=== PATIENT | female | born 1965 ===

== ENCOUNTER 2017-06-08 11:43 | Emergency (ER) | payer MEDICAID ==
[2017-06-08 11:50] VITALS: BMI 38.4
[2017-06-08 11:56] VITALS: TEMP 98.5; O2SAT 97
--- NOTE | 2017-06-08 12:15 | ED PDOC ---
Arrival/HPI - General Chief Complaint: Medical Clearance Time Seen by Provider: 06/08/17 11:56 Historian: Patient - History of Present Illness Narrative History of Present Illness (Text): 06/08/17 12:09 Kelly Swanson is a 51 year old female who presents to the emergency department complaining of swelling to right sided of the face since today morning. Patient reports that she wears a BiPAP for sleep apnea and thinks she may have leaned against the pillow which caused the swelling. States that PMD advised her to emergency department for further evaluation. Denies fever, chills , headache, dizziness, numbness to face, or any other complaints at this time. Time/Duration: Other (today morning ) Symptom Onset: Gradual Symptom Course: Improving Severity Level: Mild Past Medical History - Provider Review Nursing Documentation Reviewed: Yes - Tetanus Immunization Tetanus Immunization: Unknown - Past Medical History Past Medical History: No Previous - Cardiac Hx Hypertension: Yes - Pulmonary Hx Respiratory Disorders: Yes Hx Asthma: Yes - Neurological Hx Neurological Disorder: Yes Hx Dizziness: Yes - HEENT Hx HEENT Disorder: Yes (wears glasses) - Renal Hx Renal Disorder: No - Endocrine/Metabolic Hx Endocrine Disorders: No - Hematological/Oncological Hx Blood Disorders: Yes Hx Anemia: Yes - Integumentary Hx Dermatological Disorder: No - Musculoskeletal/Rheumatological Hx Falls: No - Gastrointestinal Hx Gastrointestinal Disorders: No - Genitourinary/Gynecological Hx Genitourinary Disorders: No - Psychiatric Hx Psychophysiologic Disorder: No Hx Substance Use: No - Past Surgical History Past Surgical History: No Previous - Surgical History Hx Tubal Ligation: Yes - Anesthesia Hx Anesthesia: Yes Hx Anesthesia Reactions: No Hx Malignant Hyperthermia: No - Suicidal Assessment Feels Threatened In Home Enviroment: No Family/Social History - Physician Review Nursing Documentation Reviewed: Yes Family/Social History: No Known Family HX Smoking Status: Never Smoked Hx Alcohol Use: No Hx Substance Use: No Hx Substance Use Treatment: No Allergies/Home Meds Allergies/Adverse Reactions: Allergies aspirin Allergy (Verified 06/08/17 11:50) REDNESS Home Medications: Home Meds Medication Instructions Recorded Confirmed Furosemide [Lasix] 40 mg PO DAILY 03/05/17 06/08/17 Linaclotide [Linzess] 290 mcg PO DAILY 03/05/17 06/08/17 Lisinopril [Zestril] 40 mg PO DAILY 03/05/17 06/08/17 Montelukast [Singulair] 10 mg PO DAILY 03/05/17 06/08/17 Potassium Chloride [K-Dur 20] 20 meq PO DAILY 03/05/17 06/08/17 amLODIPine [Norvasc] 10 mg PO DAILY 03/05/17 06/08/17 metFORMIN [glucOPHAGE] 850 mg PO DAILY 03/05/17 06/08/17 Review of Systems - Physician Review All systems were reviewed & negative as marked: Yes - Review of Systems Constitutional: Normal. absent: Fatigue, Fevers ENT: Other (swelling to r.face ) Respiratory: Normal. absent: SOB, Cough, Sputum Cardiovascular: Normal. absent: Chest Pain, Palpitations Gastrointestinal: Normal Genitourinary Female: Normal Neurological: Normal. absent: Headache, Dizziness Psychiatric: Normal Physical Exam Vital Signs Reviewed: Yes Vital Signs Temp Pulse Resp BP Pulse Ox 06/08/17 12:30 89 18 124/79 97 06/08/17 11:55 98.5 F 92 H 17 126/81 97 Temperature: Afebrile Blood Pressure: Normal Pulse: Regular Respiratory Rate: Normal Appearance: Positive for: Well-Appearing, Non-Toxic, Comfortable Pain Distress: None Mental Status: Positive for: Alert and Oriented X 3 - Systems Exam Head: Present: Atraumatic, Normocephalic, Other (No erythema, No warmth, No tenderness, No evidence of infection ) Pupils: Present: PERRL Conjunctiva: Present: Normal Mouth: Present: Moist Mucous Membranes Pharnyx: Present: Normal. No: ERYTHEMA, EXUDATE, TONSILS ENLARGED Neck: Present: Normal Range of Motion. No: MIDLINE TENDERNESS, Paraspinal Tenderness Respiratory/Chest: Present: Clear to Auscultation, Good Air Exchange. No: Respiratory Distress, Accessory Muscle Use Cardiovascular: Present: Regular Rate and Rhythm, Normal S1, S2. No: Murmurs Abdomen: Present: Normal Bowel Sounds. No: Tenderness, Distention, Peritoneal Signs Upper Extremity: Present: Normal Inspection. No: Cyanosis, Edema Lower Extremity: Present: Normal Inspection. No: Edema Neurological: Present: GCS=15, CN II-XII Intact, Speech Normal, Motor Func Grossly Intact, Normal Sensory Function Skin: Present: Warm, Dry, Normal Color. No: Rashes Psychiatric: Present: Alert, Oriented x 3, Normal Insight, Normal Concentration Medical Decision Making ED Course and Treatment: 06/08/17 12:17 Impression:A 51 year old female who presents to the emergency department complaining of swelling to right side of face. Progress Notes: 06/08/17 12:17 Patient denies any pain or numbness to the right face. Patient is stable for discharge. Advised to f/u with PMD within few days and present to emergency department for new or worsening symptoms. - Scribe Statement The provider has reviewed the documentation as recorded by the Sigifredo Balbuena Provider Attestation: Provider Scribe Attestation: All medical record entries made by the Scribe were at my direction and personally dictated by me. I have reviewed the chart and agree that the record accurately reflects my personal performance of the history, physical exam, medical decision making, and the department course for this patient. I have also personally directed, reviewed, and agree with the discharge instructions and disposition. Disposition/Present on Arrival - Present on Arrival Any Indicators Present on Arrival: No History of DVT/PE: No History of Uncontrolled Diabetes: No Urinary Catheter: No History of Decub. Ulcer: No History Surgical Site Infection Following: None - Disposition Have Diagnosis and Disposition been Completed?: Yes Diagnosis: Right facial swelling Disposition: HOME/ ROUTINE Disposition Time: 12:00 Condition: GOOD Additional Instructions: Thank you for letting us take care of you today. Your provider was Dr. Hernandez. The emergency medical care you received today was directed at your acute symptoms. If you were prescribed any medication, please fill it and take as directed. It may take several days for your symptoms to resolve. Return to the Emergency Department if your symptoms worsen, do not improve, or if you have any other problems. Please contact your doctor or call one of the physicians/clinics you have been referred to that are listed on the Patient Visit Information form that is included in your discharge packet. Bring any paperwork you were given at discharge with you along with any medications you are taking to your follow up visit. Our treatment cannot replace ongoing medical care by a primary care provider (PCP) outside of the emergency department. Thank you for allowing the [facility] team to be part of your care today. Follow up with your primary doctor in 2-3 days for re-evaluation and further management. Referrals: [facility], [Non-Staff] - Follow up with primary
[2017-06-08 12:37] VITALS: BP 124/79; PULSE 89; RESP 18
== END 2017-06-08 12:55 | disposition home or self-care (01) ==
LOC: ED 11:43
DX: R22.0 Localized swelling, mass and lump, head (principal)

== ENCOUNTER 2018-02-23 16:55 | Observation (INO) | payer MEDICAID ==
[2018-02-23 17:08] VITALS: BMI 38.5
--- NOTE | 2018-02-23 17:43 | ED PDOC ---
Arrival/HPI - General Chief Complaint: Chest Pain Time Seen by Provider: 02/23/18 16:57 Historian: Patient - History of Present Illness Narrative History of Present Illness (Text): 02/23/18 17:43 This 52 yo female with a pmh diabetes, hypertension, GERD, hiatal hernia, hyperlipidemia, presents to this Emergency department complaining of intermittent chest pain since last night. Patient describes chest pain as substernal, non radiating, and burning. Pain worsen with deep inspiration. Patient denies other somatic complains. Denies fever, zabala, abdominal pain, urinary symptoms, dizziness, trauma, recent travel or abnormal gait. Patient noted having an injection for her plantar fasciitis x 2 days ago. Time/Duration: Other (see hpi) Context: Home Past Medical History - Provider Review Nursing Documentation Reviewed: Yes - Tetanus Immunization Tetanus Immunization: Unknown - Past Medical History Past Medical History: No Previous - Cardiac Hx Hypertension: Yes - Pulmonary Hx Respiratory Disorders: Yes Hx Asthma: Yes - Neurological Hx Neurological Disorder: Yes Hx Dizziness: Yes - HEENT Hx HEENT Disorder: Yes (wears glasses) - Renal Hx Renal Disorder: No - Endocrine/Metabolic Hx Endocrine Disorders: No - Hematological/Oncological Hx Blood Disorders: Yes Hx Anemia: Yes - Integumentary Hx Dermatological Disorder: No - Musculoskeletal/Rheumatological Hx Falls: No - Gastrointestinal Hx Gastrointestinal Disorders: No - Genitourinary/Gynecological Hx Genitourinary Disorders: No - Psychiatric Hx Psychophysiologic Disorder: No Hx Substance Use: No - Past Surgical History Past Surgical History: No Previous - Surgical History Hx Tubal Ligation: Yes - Anesthesia Hx Anesthesia: Yes Hx Anesthesia Reactions: No Hx Malignant Hyperthermia: No - Suicidal Assessment Feels Threatened In Home Enviroment: No Family/Social History - Physician Review Nursing Documentation Reviewed: Yes Family/Social History: Other (noncontributory) Smoking Status: Never Smoked Hx Alcohol Use: No Hx Substance Use: No Hx Substance Use Treatment: No Allergies/Home Meds Allergies/Adverse Reactions: Allergies aspirin Allergy (Verified 06/08/17 11:50) REDNESS Home Medications: Home Meds Medication Instructions Recorded Confirmed Furosemide [Lasix] 40 mg PO DAILY 03/05/17 06/08/17 Linaclotide [Linzess] 290 mcg PO DAILY 03/05/17 06/08/17 Lisinopril [Zestril] 40 mg PO DAILY 03/05/17 06/08/17 Montelukast [Singulair] 10 mg PO DAILY 03/05/17 06/08/17 Potassium Chloride [K-Dur 20] 20 meq PO DAILY 03/05/17 06/08/17 amLODIPine [Norvasc] 10 mg PO DAILY 03/05/17 06/08/17 metFORMIN [glucOPHAGE] 850 mg PO DAILY 03/05/17 06/08/17 Review of Systems - Review of Systems Constitutional: Normal. absent: Fatigue, Weight Change, Fevers Eyes: Normal ENT: Normal. absent: Sore Throat Respiratory: Normal. absent: SOB, Cough, Sputum, Wheezing Cardiovascular: Chest Pain. absent: Palpitations, Edema, Calf Pain, ZABALA, Orthopnea, Syncope Gastrointestinal: Normal. absent: Abdominal Pain, Nausea, Vomiting Genitourinary Female: Normal. absent: Dysuria, Frequency, Hematuria Musculoskeletal: Normal Skin: Normal. absent: Rash Neurological: Normal. absent: Headache, Dizziness, Focal Weakness, Gait Changes Endocrine: Normal Hemo/Lymphatic: Normal Psychiatric: Normal Physical Exam Vital Signs Temp Pulse Resp BP Pulse Ox 02/23/18 19:10 65 16 120/69 99 02/23/18 17:11 98.4 F 79 18 123/72 97 Temperature: Afebrile Blood Pressure: Normal Pulse: Regular Respiratory Rate: Normal Appearance: Positive for: Well-Appearing, Non-Toxic, Comfortable Pain Distress: None Mental Status: Positive for: Alert and Oriented X 3 - Systems Exam Head: Present: Atraumatic, Normocephalic Pupils: Present: PERRL Extroacular Muscles: Present: EOMI Conjunctiva: Present: Normal Mouth: Present: Moist Mucous Membranes Neck: Present: Normal Range of Motion Respiratory/Chest: Present: Clear to Auscultation, Good Air Exchange. No: Respiratory Distress, Accessory Muscle Use, Wheezes, Rhonchi, Tender to Palpation Cardiovascular: Present: Regular Rate and Rhythm, Normal S1, S2. No: Murmurs Abdomen: No: Tenderness, Distention, Peritoneal Signs, Rebound, Guarding Back: Present: Normal Inspection Upper Extremity: Present: Normal Inspection, Normal ROM. No: Cyanosis, Edema Lower Extremity: Present: Normal Inspection, Normal ROM. No: Edema Neurological: Present: GCS=15, CN II-XII Intact, Speech Normal Skin: Present: Warm, Dry, Normal Color. No: Rashes Psychiatric: Present: Alert, Oriented x 3, Normal Insight, Normal Concentration , Normal Affect. No: Anxious, Agitated, Suicidal Ideation, Homicidal Ideation Medical Decision Making ED Course and Treatment: 02/23/18 20:[address] Pena , [place] [facility] regarding patient complaining of chest pain. We reviewed labs, cxr, patient pmh. He stated Dr. Woods is house doctor [place]. 02/23/18 20:[address] Woods regarding patient complaining of chest pain. We reviewed labs, Chest X-ray, and pmh. He agrees with plan for observation. Re-evaluation Time: 20:16 Reassessment Condition: Re-examined, Improving,but remains with symptoms - Lab Interpretations Lab Results: 02/23/18 18:15 02/23/18 18:15 Lab Results 02/23/18 19:30: Urine Opiates Screen Pending, Urine Methadone Screen Pending, Ur Barbiturates Screen Negative, Ur Phencyclidine Scrn Pending, Ur Amphetamines Screen Pending, U Benzodiazepines Scrn Pending, U Oth Cocaine Metabols Pending, U Cannabinoids Screen Pending 02/23/18 19:30: Urine Color Yellow, Urine Appearance Clear, Urine pH 6.0, Ur Specific [place] 1.010, Urine Protein Negative, Urine Glucose (UA) Negative, Urine Ketones Negative, Urine Blood Negative, Urine Nitrate Negative, Urine Bilirubin Negative, Urine Urobilinogen 0.2, Ur Leukocyte Esterase Trace H, Urine RBC Negative, Urine WBC 0 - 2 02/23/18 18:15: Sodium 141, Potassium 4.0, Chloride 103, Carbon Dioxide 27, Anion Gap 15, BUN 22 H, Creatinine 1.0, Est GFR ( Amer) > 60, Est GFR ( Non-Af Amer) 58, Random Glucose 117 H, Calcium 10.1, Magnesium 2.3 H, Total Bilirubin 0.2, AST 27, ALT 37, Alkaline Phosphatase 133 H, Lactate Dehydrogenase 380, Total Creatine Kinase 117, Troponin I < 0.01, NT-Pro-B Natriuret Pep 38.1, Total Protein 7.8, Albumin 4.1, Globulin 3.6, Albumin/ Globulin Ratio 1.2, Lipase 157 02/23/18 18:15: PT 11.5, INR 1.01, APTT 33.8 02/23/18 18:15: WBC 13.3 H, RBC 4.51, Hgb 11.9 L, Hct 36.9, MCV 81.8, MCH 26.4, MCHC 32.2, RDW 15.9 H, Plt Count 418, MPV 10.8, Gran % 56.3, Lymph % (Auto) 35.2 H, [place] % (Auto) 7.5 H, Eos % (Auto) 0.8 L, Baso % (Auto) 0.2, Gran # 7.44 H, Lymph # (Auto) 4.7 H, [place] # (Auto) 1.0 H, Eos # (Auto) 0.1, Baso # (Auto) 0.03 I have reviewed the lab results: Yes Interpretation: No sign. chg./baseline - RAD Interpretation Narrative RAD Interpretations (Text): 02/23/18 20:16 Chest x-rays: NAD Radiology Orders: 02/23/18 17:44 CHEST PORTABLE [RAD] Stat - EKG Interpretation Interpreted by ED Physician: Yes (NSR @ [address] changes) Type: 12 lead EKG Comparison: No previous EKG avail. - Medication Orders Current Medication Orders: Discontinued Medications Al Hydrox/Mg Hydrox/Simethicone (Maalox Plus 30 Ml) 30 ml PO STAT STA Stop: 02/23/18 17:46 Last Admin: 02/23/18 17:54 Dose: 30 ml Belladonna/Phenobarbital ( Elixir) 5 ml PO STAT STA Stop: 02/23/18 17:46 Last Admin: 02/23/18 17:52 Dose: 5 ml Famotidine (Pepcid 20mg/50ml Premix) 20 mg in 50 mls @ 100 mls/hr IVPB STAT STA Stop: 02/23/18 18:13 Last Admin: 02/23/18 17:52 Dose: 100 mls/hr eMAR Start Stop Document 02/23/18 17:52 RR (Rec: 02/23/18 17:52 RR [id number]) Intravenous Solution Start Date 02/23/18 Start Time 17:52 End Date 02/23/18 End time 18:22 Total Infusion Time 30 Sodium Chloride (Sodium Chloride 0.9%) 1,000 mls @ 999 mls/hr IV .Q1H1M STA Stop: 02/23/18 18:46 Last Admin: 02/23/18 17:54 Dose: 999 mls/hr eMAR Start Stop Document 02/23/18 17:54 RR (Rec: 02/23/18 17:54 RR [id number]) Intravenous Solution Start Date 02/23/18 Start Time 17:54 End Date 02/23/18 End time 18:55 Total Infusion Time 61 Lidocaine (Lidocaine 2% Viscous) 5 ml PO STAT STA Stop: 02/23/18 17:46 Last Admin: 02/23/18 17:53 Dose: 5 ml Disposition/Present on Arrival - Present on Arrival Any Indicators Present on Arrival: No History of DVT/PE: No History of Uncontrolled Diabetes: No Urinary Catheter: No History of Decub. Ulcer: No History Surgical Site Infection Following: None - Disposition Have Diagnosis and Disposition been Completed?: Yes Diagnosis: Chest pain Disposition: HOSPITALIZED Disposition Time: 20:02 Patient Plan: Admission Patient Problems: Current Active Problems Problem Status Onset Chest pain Acute Condition: STABLE Discharge Instructions (ExitCare): Chest Pain (ED) Referrals: Yasmany Campuzano MD [Primary Care Provider] - Follow up with primary Forms: rankur (Greenlandic)
[2018-02-23] MEDS ORDERED: Famotidine 20mg/50ml 20 MG/50 ML BAG IVPB STA (17:44)
[2018-02-23] MEDS ORDERED: Atrop/Hyosc/Scopal/PB Elixir (120 ml) PO STA (17:45)
[2018-02-23] MEDS ORDERED: Lidocaine 2% Viscous 100 ml PO STA (17:45)
[2018-02-23] MEDS ORDERED: Alum-Mag Hydrox-Simethicone Susp (30 mL) PO STA (17:45)
[2018-02-23] MEDS ORDERED: Sodium Chloride 0.9% 1,000 ML IV STA (17:46)
[2018-02-23 18:31] LABS: BASO # 0.03 K/mm3 (0.0-2.0); BASO % 0.2 % (0.0-3.0); EOS # 0.1 (0.0-0.7); EOS % 0.8 % (1.5-5.0); GRAN # 7.44 (1.4-6.5); GRAN % 56.3 % (50.0-68.0); HEMOGLOBIN 11.9 g/dL (12.0-16.0); LYMPH # 4.7 (1.2-3.4); LYMPH % 35.2 % (22.0-35.0); MEAN CELL VOLUME 81.8 fl (80.0-105.0); MEAN CORPUSCULAR HEMOGLOBIN 26.4 pg (25.0-35.0); MEAN CORPUSCULAR HGB CONC 32.2 g/dl (31.0-37.0); MEAN PLATELET VOLUME 10.8 fl (7.0-11.0); MONO % 7.5 % (1.0-6.0); RBC 4.51 10^6/uL (3.5-6.1); RED CELL DISTRIBUTION WIDTH 15.9 % (11.5-14.5); WHITE BLOOD COUNT 13.3 10^3/ul (4.5-11.0)
[2018-02-23 18:49] LABS: INR 1.01 (0.93-1.08); PARTIAL THROMBOPLASTIN TIME 33.8 Seconds (25.1-36.5); PROTHROMBIN TIME 11.5 SECONDS (9.4-12.5)
[2018-02-23 19:05] LABS: ALB/GLOB RATIO 1.2 (1.1-1.8); ALBUMIN 4.1 g/dL (3.0-4.8); ALT/SGPT 37 U/L (7-56); AST/SGOT 27 U/L (14-36); BLOOD UREA NITROGEN 22 mg/dL (7-21); CALCIUM 10.1 mg/dL (8.4-10.5); GFR AFRICAN-AMERICAN > 60; GFR NON-AFRICAN AMERICAN 58; LIPASE 157 U/L (23-300)
[2018-02-23 19:16] LABS: B-TYPE NATRIURETIC PEPTIDE 38.1 pg/mL (0-450); TROPONIN I < 0.01 ng/mL
[2018-02-23 19:50] LABS: URINE BILIRUBIN NEGATIVE (NEGATIVE); URINE BLOOD NEGATIVE (NEGATIVE); URINE GLUCOSE (UA) NEGATIVE (NEGATIVE); URINE LEUKOCYTE ESTERASE TRACE Leu/uL (NEGATIVE); URINE PROTEIN NEGATIVE mg/dL (<30 mg/dL); URINE UROBILINOGEN 0.2 E.U./dL (<1 E.U./dL)
[2018-02-23 19:52] LABS: URINE APPEARANCE CLEAR (CLEAR); URINE COLOR YELLOW (YELLOW)
[2018-02-23 20:03] LABS: BARBITURATES, UR NEGATIVE (NEGATIVE)
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
[2018-02-23 20:13] LABS: URINE RBC NEGATIVE /hpf (0-2); URINE WBC 0 - 2 /hpf (0-6)
[2018-02-23 20:34] LABS: BENZODIAZEPINES, UR NEGATIVE (NEGATIVE); OPIATES, UR NEGATIVE (NEGATIVE); PHENCYCLIDINE, UR NEGATIVE (NEGATIVE)
[2018-02-23] MEDS: Insulin Lispro (humaLOG) MEDIUM Coverage SC SCH (22:31)
[2018-02-24 06:51] LABS: BASO # 0.04 K/mm3 (0.0-2.0); BASO % 0.4 % (0.0-3.0); EOS # 0.2 (0.0-0.7); EOS % 1.6 % (1.5-5.0); GRAN # 4.31 (1.4-6.5); GRAN % 45.8 % (50.0-68.0); HEMOGLOBIN 10.9 g/dL (12.0-16.0); LYMPH % 42.2 % (22.0-35.0); MEAN CELL VOLUME 81.9 fl (80.0-105.0); MEAN CORPUSCULAR HEMOGLOBIN 25.6 pg (25.0-35.0); MEAN CORPUSCULAR HGB CONC 31.2 g/dl (31.0-37.0); MEAN PLATELET VOLUME 10.4 fl (7.0-11.0); MONO # 0.9 (0.1-0.6); RBC 4.26 10^6/uL (3.5-6.1); RED CELL DISTRIBUTION WIDTH 15.9 % (11.5-14.5); WHITE BLOOD COUNT 9.4 10^3/ul (4.5-11.0)
[2018-02-24 07:09] LABS: LDL CHOLESTEROL 80 mg/dL (0-129)
[2018-02-24 07:10] LABS: TROPONIN I < 0.01 ng/mL
[2018-02-24 07:32] VITALS: BP 110/64; RESP 19; TEMP 97.7; O2SAT 94
[2018-02-24 07:36] LABS: ALB/GLOB RATIO 1.2 (1.1-1.8); ALBUMIN 3.7 g/dL (3.0-4.8); ALT/SGPT 30 U/L (7-56); AST/SGOT 39 U/L (14-36); BLOOD UREA NITROGEN 17 mg/dL (7-21); CALCIUM 9.6 mg/dL (8.4-10.5); GFR AFRICAN-AMERICAN > 60; GFR NON-AFRICAN AMERICAN > 60; HDL CHOLESTEROL 45 mg/dL (29-60)
[2018-02-24] MEDS: Insulin Lispro (humaLOG) MEDIUM Coverage SC SCH ×2 (07:54→12:10)
--- NOTE | 2018-02-24 08:48 | RAD ---
HISTORY: CP COMPARISON: No prior. FINDINGS: LUNGS: No active pulmonary disease. PLEURA: No significant pleural effusion identified, no pneumothorax apparent. CARDIOVASCULAR: Normal. OSSEOUS STRUCTURES: No significant abnormalities. VISUALIZED UPPER ABDOMEN: Normal. OTHER FINDINGS: None. IMPRESSION: No active disease.
[2018-02-24] MEDS ORDERED: Potassium Chloride 20 mEq ER Tab PO SCH (10:00)
[2018-02-24] MEDS ORDERED: Non Formulary Medication (Linaclotide [Linzess] 290 MCG) PO SCH (10:00)
[2018-02-24 13:16] VITALS: PULSE 80
--- NOTE | 2018-02-24 14:17 | CARD ---
APPROVED REPORT EKG Measurement Heart [id number] <Conclusion> Normal sinus rhythm Normal ECG
--- NOTE | 2018-02-24 14:22 | CARD ---
APPROVED REPORT EKG Measurement Heart [id number] <Conclusion> Normal sinus rhythm Normal ECG
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
== END 2018-02-24 13:59 | disposition home or self-care (01) ==
LOC: ED 16:55 → ERH 20:09 → 3RSO 21:00
PROVIDERS: ADMIT Internal Medicine; ATTEND Internal Medicine
DX: R07.89 Other chest pain (principal); K21.9 Gastro-esophageal reflux disease without esophagitis; M72.2 Plantar fascial fibromatosis; J45.909 Unspecified asthma, uncomplicated; I10 Essential (primary) hypertension; I08.1 Rheumatic disorders of both mitral and tricuspid valves; J98.4 Other disorders of lung; G47.33 Obstructive sleep apnea (adult) (pediatric); E78.5 Hyperlipidemia, unspecified; E11.9 Type 2 diabetes mellitus without complications; K44.9 Diaphragmatic hernia without obstruction or gangrene; Z79.84 Long term (current) use of oral hypoglycemic drugs; Z88.6 Allergy status to analgesic agent
CPT/HCPCS: 36415; 71045; 80053; 80061; 80324; 80345; 80346; 80349; 80353; 80358; 80361; 81001; 82550; 82948; 83036; 83615; 83690; 83735; 83880; 83992; 84443; 84484; 85025; 85610; 85730; 87086; 93005; 94660; 96360; 96365; 99285; G0378; J7040

== ENCOUNTER 2018-08-12 11:11 | Day surgery (SDC) | payer MEDICAID ==
[2018-08-12 11:58] VITALS: O2SAT 100
[2018-08-12] MEDS ORDERED: Propofol 10 mg/ml Inj (20 ML) ONE (12:26)
[2018-08-12] MEDS ORDERED: Sodium Chloride 0.9% 1,000 ML IV SCH (13:00)
[2018-08-12 14:10] VITALS: BP 115/68; PULSE 65; RESP 17; TEMP 97.9
== END 2018-08-12 14:45 | disposition home or self-care (01) ==
LOC: ENDO 11:11
PROVIDERS: ATTEND Internal Medicine Gastroenterology
DX: Z12.11 Encounter for screening for malignant neoplasm of colon (principal); K64.8 Other hemorrhoids
CPT/HCPCS: 45380; 84703; 88305; J2001; J2704; J7030; J7040

== ENCOUNTER 2018-08-20 16:41 | Observation (INO) | payer MEDICAID ==
[2018-08-20 17:37] VITALS: BMI 40.7
--- NOTE | 2018-08-20 17:44 | ED PDOC ---
Arrival/HPI <Elpidio Steiner - Last Filed: 08/20/18 17:55> - General Historian: Patient - History of Present Illness Narrative History of Present Illness (Text): 08/20/18 17:37 53 y/o female, pmh incuding htn/dm/asthma/gerd, not allergic to aspirin, post menopausal and bilateral tubal ligations, c/o chest pain started early last night last night. Pt. stated that she was sitting in the college class last night on the chair, developed anterior chest pain, on and off from last night to today, no palpitation, no headache, no shortness of breath, no night sweat, no change in vision, no numbness or tingling, no other medical or psychological complaints. <Francisco Hannon - Last Filed: 08/20/18 20:16> - General Time Seen by Provider: 08/20/18 17:35 Past Medical History - Provider Review Nursing Documentation Reviewed: Yes - Tetanus Immunization Tetanus Immunization: Unknown - Past Medical History Past Medical History: No Previous - Cardiac Hx Pacemaker: No - Pulmonary Hx Bronchitis: No Hx Chronic Obstructive Pulmonary Disease (COPD): No Hx Emphysema: No Hx Pneumonia: No Hx Respiratory Aspiration: No Hx Respiratory Tract Infection: No Hx Sleep Apnea: Yes (cpap at night) Hx Tuberculosis: No - Neurological Hx Paralysis: No - HEENT Hx Blind: No Hx Cataracts: No Hx Deafness: No Hx Difficulty Chewing: Yes (partial dentures upper and lower) Hx Epistaxis: No Hx Glaucoma: No Hx Macular Degeneration: No - Renal Hx Dialysis: No Hx Kidney Stones: No Hx Neurogenic Bladder: No Hx Pyelonephritis: No Hx Renal Cancer: No Hx Renal Failure: No - Endocrine/Metabolic Hx Adrenal Cancer: No Hx Diabetes Insipidus: No Hx Diabetes Mellitus Type 1: No Hx Diabetes Mellitus Type 2: Yes Hx Hyperthyroidism: No Hx Hypothyroidism: No Hx Systemic Lupus Erythematosus: No - Hematological/Oncological Hx Blood Transfusions: No - Integumentary Hx Basal Cell Carcinoma: No Hx Eczema: No Hx Melanoma: No Hx Psoriasis: No Hx Squamous Cell Carcinoma: No - Musculoskeletal/Rheumatological Hx Musculoskeletal Disorders: Yes - Gastrointestinal Hx Colostomy: No Hx Crohn's Disease: No Hx Diverticulitis: No Hx Gall Bladder Disease: No Hx Gastroesophageal Reflux: No Hx Gastrointestinal Ulcer: No Hx Ileostomy: No Hx Liver Failure: No Hx Pancreatitis: No HX Swallowing Problems: No - Genitourinary/Gynecological Hx Hematuria: No Hx Incontinence: No Hx Prostate Problems: No Hx Sexually Transmitted Diseases: No Hx Urinary Tract Infection: No - Psychiatric Hx Emotional Abuse: No Hx Physical Abuse: No Hx Substance Use: No - Past Surgical History Past Surgical History: No Previous - Surgical History Hx Amputation: No Hx Appendectomy: No Hx Cardiac Catheterization: No Hx Cholecystectomy: No Hx Coronary Stent: No Hx Gastric Bypass Surgery: No Hx Hysterectomy: No Hx Inguinal Hernia Repair: No Hx Joint Replacement: No Hx Kidney Transplant: No Hx Liver Transplant: No Hx Mastectomy: No Hx Musculoskeletal Surgery: Yes (b/l planter faciitis surgical repair) Hx Open Heart Surgery: No Hx Orthopedic Surgery: No Hx Splenectomy: No Hx Valve Replacement: No - Anesthesia Hx Anesthesia Reactions: Yes (BECAME HYPERTENSIVE POST LAST SURGERY) Hx Malignant Hyperthermia: No - Suicidal Assessment Feels Threatened In Home Enviroment: No <Francisco Hannon - Last Filed: 08/20/18 20:16> Family/Social History - Physician Review Nursing Documentation Reviewed: Yes Family/Social History: Unknown Family HX Smoking Status: Never Smoked Hx Alcohol Use: No Hx Substance Use: No Hx Substance Use Treatment: No <Francisco Hannon - Last Filed: 08/20/18 20:16> Allergies/Home Meds <Elpidio Steiner - Last Filed: 08/20/18 17:55> <Francisco Hannon - Last Filed: 08/20/18 20:16> Allergies/Adverse Reactions: Allergies No Known Allergies Allergy (Verified 08/20/18 19:58) Home Medications: Home Meds Medication Instructions Recorded Confirmed Furosemide [Lasix] 40 mg PO DAILY 03/05/17 08/12/18 Linaclotide [Linzess] 290 mcg PO DAILY PRN 03/05/17 08/12/18 Lisinopril [Zestril] 40 mg PO DAILY 03/05/17 08/12/18 Montelukast [Singulair] 10 mg PO DAILY 03/05/17 08/12/18 Potassium Chloride [K-Dur 20 mEq 20 meq PO DAILY 03/05/17 08/12/18 ER Tab] amLODIPine [Norvasc] 10 mg PO DAILY 03/05/17 08/12/18 metFORMIN [glucOPHAGE] 850 mg PO DAILY 03/05/17 08/12/18 Albuterol HFA [Ventolin HFA 90 1 puff IH PRN PRN 08/12/18 08/12/18 mcg/actuation (8 g)] Cholecalciferol (Vitamin D3) 50,000 unit PO .QWED 08/12/18 08/12/18 [Vitamin D3] hydrALAZINE [hydralazine 25 mg PO BID 08/12/18 08/12/18 Hydrochloride] Review of Systems - Review of Systems Constitutional: absent: Fatigue, Fevers Eyes: absent: Vision Changes ENT: absent: Hearing Changes Respiratory: absent: SOB, Cough Cardiovascular: Chest Pain Gastrointestinal: absent: Abdominal Pain, Nausea, Vomiting Genitourinary Female: absent: Dysuria, Frequency Musculoskeletal: absent: Arthralgias, Back Pain Skin: absent: Rash, Pruritis Neurological: absent: Headache, Dizziness Psychiatric: absent: Anxiety, Depression, Suicidal Ideation <Francisco Hannon - Last Filed: 08/20/18 20:16> Physical Exam Vital Signs Temp Pulse Pulse Resp BP BP Pulse Ox 08/20/18 17:40 96 H 121/66 08/20/18 17:37 97.8 F 96 H 18 121 98 <Kwabena Steineroper - Last Filed: 08/20/18 17:55> Vital Signs Reviewed: Yes Temperature: Afebrile Blood Pressure: Normal Pulse: Regular Respiratory Rate: Normal Appearance: Positive for: Well-Appearing, Non-Toxic, Comfortable Pain Distress: Mild Mental Status: Positive for: Alert and Oriented X 3 - Systems Exam Head: Present: Atraumatic, Normocephalic Pupils: Present: PERRL Extroacular Muscles: Present: EOMI Conjunctiva: Present: Normal Mouth: Present: Moist Mucous Membranes Neck: Present: Normal Range of Motion Respiratory/Chest: Present: Clear to Auscultation, Good Air Exchange. No: Respiratory Distress, Accessory Muscle Use Cardiovascular: Present: Regular Rate and Rhythm, Normal S1, S2. No: Murmurs Abdomen: No: Tenderness, Distention, Peritoneal Signs Back: Present: Normal Inspection Upper Extremity: Present: Normal Inspection. No: Cyanosis, Edema Lower Extremity: Present: Normal Inspection. No: Edema Neurological: Present: GCS=15, CN II-XII Intact, Speech Normal, Motor Func Grossly Intact, Gait Normal, Memory Normal Skin: Present: Warm, Dry, Normal Color. No: Rashes Psychiatric: Present: Alert, Oriented x 3, Normal Insight, Normal Concentration <Francisco Hannon - Last Filed: 08/20/18 20:16> Medical Decision Making - RAD Interpretation Radiology Orders: 08/20/18 17:45 CHEST PORTABLE [RAD] Stat - Medication Orders Current Medication Orders: Discontinued Medications Famotidine (Pepcid) 20 mg IVP STAT STA Stop: 08/20/18 17:45 <Elpidio Steiner - Last Filed: 08/20/18 17:55> ED Course and Treatment: 08/20/18 17:46 -labs -ekg -cxr -IV pepcid -Observe and reassess 08/20/18 19:25 -UA show +UTI, IV rocephine ordered 08/20/18 19:59 -EKG: NSR @ 91 BPM, no ST elevation or depression, no T wave inversion -CXR show no active disease -Labs show no acute findings except wbc 14.4 (afebrile, UA and fluid ordered which I will repeat the CBC). -Trop is negative at this time, she would need 24 hours -Pt. still has pain of midsternal chest pain from score 8 to 6/10, morphine/nitro/aspirin ordered, she needs further evaluation for observation overnight as her heart score is 4. -Paging night hospitalist for admission. 08/20/18 20:15 -I spoke to the medical parasitologist and Dr. Deng, discussed about the labs/radiology result and course of treatment, agreed on the admission over night due to the persistent chest pain and leukocytosis. - Lab Interpretations I have reviewed the lab results: Yes - EKG Interpretation EKG Interpretation (Text): 08/20/18 17:49 NSR @ 91 BPM, no ST elevation or depression, no T wave inversion Interpreted by ED Physician: Yes Type: 12 lead EKG <Francisco aHnnon - Last Filed: 08/20/18 20:16> - PA / SENIOR INFORMATION SECURITY ARCHITECT / Resident Statement TRACI has reviewed & agrees with the documentation as recorded. <Elpidio Steiner - Last Filed: 08/20/18 17:55> - PA / SENIOR INFORMATION SECURITY ARCHITECT / Resident Statement TRACI has reviewed & agrees with the documentation as recorded. <Francisco Hannon - Last Filed: 08/20/18 20:16> Disposition/Present on Arrival <Elpidio Steiner - Last Filed: 08/20/18 17:55> - Present on Arrival Any Indicators Present on Arrival: No History of DVT/PE: No History of Uncontrolled Diabetes: No Urinary Catheter: No History of Decub. Ulcer: No History Surgical Site Infection Following: None - Disposition Have Diagnosis and Disposition been Completed?: Yes Disposition Time: 20:01 Patient Plan: Admission, Observation, Telemetry <Francisco Hannon - Last Filed: 08/20/18 20:16> - Disposition Diagnosis: UTI (urinary tract infection), Chest pain Disposition: HOSPITALIZED Patient Problems: Current Active Problems Problem Status Onset Chest pain Acute UTI (urinary tract infection) Acute Condition: STABLE Discharge Instructions (ExitCare): Chest Pain (ED)
[2018-08-20 18:35] LABS: BASO # 0.04 K/mm3 (0.0-2.0); BASO % 0.3 % (0.0-3.0); EOS # 0.4 (0.0-0.7); EOS % 2.6 % (1.5-5.0); GRAN # 8.29 (1.4-6.5); GRAN % 57.7 % (50.0-68.0); HEMOGLOBIN 11.3 g/dL (12.0-16.0); LYMPH # 4.6 (1.2-3.4); LYMPH % 32.2 % (22.0-35.0); MEAN CORPUSCULAR HEMOGLOBIN 25.3 pg (25.0-35.0); MEAN CORPUSCULAR HGB CONC 31.2 g/dl (31.0-37.0); MONO % 7.2 % (1.0-6.0); RBC 4.47 10^6/uL (3.5-6.1); RED CELL DISTRIBUTION WIDTH 15.2 % (11.5-14.5); WHITE BLOOD COUNT 14.4 10^3/ul (4.5-11.0)
[2018-08-20 18:40] LABS: ALB/GLOB RATIO 1.3 (1.1-1.8); ALBUMIN 4.6 g/dL (3.0-4.8); ALT/SGPT 24 U/L (7-56); AST/SGOT 28 U/L (14-36); BLOOD UREA NITROGEN 15 mg/dL (7-21); CALCIUM 9.6 mg/dL (8.4-10.5); GFR NON-AFRICAN AMERICAN > 60; LIPASE 139 U/L (23-300)
[2018-08-20 18:51] LABS: TROPONIN I < 0.01 ng/mL
[2018-08-20] MEDS ORDERED: Sodium Chloride 0.9% 1,000 ML IV STA (18:52)
[2018-08-20 19:20] LABS: PH,URINE 6.5 (4.7-8.0); URINE BILIRUBIN NEGATIVE (NEGATIVE); URINE BLOOD NEGATIVE (NEGATIVE); URINE GLUCOSE (UA) NEGATIVE (NEGATIVE); URINE LEUKOCYTE ESTERASE SMALL Leu/uL (NEGATIVE); URINE PROTEIN NEGATIVE mg/dL (<30 mg/dL); URINE UROBILINOGEN 0.2 E.U./dL (<1 E.U./dL)
[2018-08-20 19:21] LABS: URINE COLOR COLORLESS (YELLOW)
[2018-08-20 19:22] LABS: URINE APPEARANCE CLEAR (CLEAR)
[2018-08-20] MEDS ORDERED: cefTRIAXone 1 gm 1 GM/100 ML BAG IVPB STA (19:24)
[2018-08-20 19:50] LABS: URINE RBC NEGATIVE /hpf (0-2)
[2018-08-20] MEDS ORDERED: Morphine 4 mg/ml ISec IVP STA (19:57)
--- NOTE | 2018-08-20 21:06 | CARD ---
APPROVED REPORT Date of service: 08/20/2018 EKG Measurement Heart [id number] <Conclusion> Normal sinus rhythm Normal ECG
[2018-08-20] MEDS ORDERED: Morphine 2 mg/ml ISec IVP PRN (21:26)
[2018-08-20] MEDS ORDERED: Albuterol-Ipratrop 3 mg / 0.5 (3 ml) UD IH PRN (21:29)
[2018-08-20] MEDS ORDERED: Bismuth Subsalicylate 262 mg/15 ml Sus (240 ml) PO PRN (21:45)
--- NOTE | 2018-08-20 22:01 | CP.PCM.HP ---
<LanceDinorahCristhian Vargas - Last Filed: 08/21/18 00:58> History of Present Illness - History of Present Illness History of Present Illness: Cristhian Lucas PGY1 History and Physical for Dr Deng Pt is a 53yo female with a PMH of NIDDM, HTN, ?GERD, ?hiatial hernia, plantar fascitis, asthma, BERYL who presents to the ED complaining of 8/10 burning substernal chest pain, which radiates to her back. The pain started at 7pm last night, she states the pain worsened from while she was at work walking up and down stairs. Pt reports having difficulty breathing during this event, in addition to feeling tired. Pt states that her pain is now 2/10. Pt states this has happened before about 6 months ago, she came to [facility] time, she was told she had GERD. Pt took an Ibuprofen which helped the pain. Pt denies having the pain radiate to her jaw, arms or neck. Pt denies paroxysmal nocturnal dyspnea, waking up with a cough/ scratchy throat. Pt denies suprapubic tenderness, or any urinary symptoms. PMH: NIDDM, HTN, ?GERD, ?hiatial hernia, plantar fascitis, asthma, BERYL PSH: tubal ligation (2000), polyp removal from vocal cord (2017), Colonoscopy (2018) FH: Mother 83, HTN, anemia. Father 60, from [place]: denies tobacco, denies alcohol, denies drugs, lives with and 2 children Home meds: per pt: lisinopril 40, amlodipine 10, lasix 40, Vit D, Metformin 850, Hydralazine BID Allergies: ASA, causes GI upset PMD: Dr Yasmany Campuzano, [place] Present on Admission - Present on Admission Any Indicators Present on Admission: No Review of Systems - Review of Systems Review of Systems: a 12 point ROS was obtained and added to the HPI Past Patient History - Tetanus Immunizations Tetanus Immunization: Unknown - Past Medical History & Family History Past Medical History?: Yes - Past Social History Smoking Status: Never Smoked - CARDIAC Hx Pacemaker: No - PULMONARY Hx Bronchitis: No Hx Chronic Obstructive Pulmonary Disease (COPD): No Hx Emphysema: No Hx Pneumonia: No Hx Respiratory Aspiration: No Hx Respiratory Tract Infection: No Hx Sleep Apnea: Yes (cpap at night) Hx Tuberculosis: No - NEUROLOGICAL Hx Paralysis: No - HEENT Hx Blind: No Hx Cataracts: No Hx Deafness: No Hx Difficulty Chewing: Yes (partial dentures upper and lower) Hx Epistaxis: No Hx Glaucoma: No Hx Macular Degeneration: No - RENAL Hx Dialysis: No Hx Kidney Stones: No Hx Neurogenic Bladder: No Hx Pyelonephritis: No Hx Renal (Kidney) Cancer: No Hx Renal Failure: No - ENDOCRINE/METABOLIC Hx Adrenal Cancer: No Hx Diabetes Insipidus: No Hx Diabetes Mellitus Type 1: No Hx Diabetes Mellitus Type 2: Yes Hx Hyperthyroidism: No Hx Hypothyroidism: No Hx Systemic Lupus Erythematosus: No - HEMATOLOGICAL/ONCOLOGICAL Hx Blood Transfusions: No - INTEGUMENTARY Hx Basil Cell: No Hx Eczema: No Hx Melanoma: No Hx Psoriasis: No Hx Squamous Cell: No - MUSCULOSKELETAL/RHEUMATOLOGICAL Hx Musculoskeletal Disorders: Yes - GASTROINTESTINAL Hx Colostomy: No Hx Crohn's Disease: No Hx Diverticulitis: No Hx Gall Bladder Disease: No Hx Gastroesophageal Reflux: No Hx Ileostomy: No Hx Liver Failure: No Hx Pancreatitis: No HX Swallowing Problems: No - GENITOURINARY/GYNECOLOGICAL Hx Hematuria: No Hx Incontinence: No Hx Sexually Transmitted Disorders: No Hx Urinary Tract Infection: No - PSYCHIATRIC Hx Emotional Abuse: No Hx Physical Abuse: No Hx Substance Use: No - SURGICAL HISTORY Hx Amputation: No Hx Appendectomy: No Hx Cardiac Catheterization: No Hx Cholecystectomy: No Hx Coronary Stent: No Hx Gastric Bypass Surgery: No Hx Hysterectomy: No Hx Joint Replacement: No Hx Kidney Transplant: No Hx Liver Transplant: No Hx Mastectomy: No Hx Musculoskeletal Surgery: Yes (b/l planter faciitis surgical repair) Hx Open Heart Surgery: No Hx Orthopedic Surgery: No Hx Splenectomy: No Hx Valve Replacement: No - ANESTHESIA Hx Anesthesia Reactions: Yes (BECAME HYPERTENSIVE POST LAST SURGERY) Hx Malignant Hyperthermia: No Meds Allergies/Adverse Reactions: Allergies Allergy/AdvReac Type Severity Reaction Status Date / Time No Known Allergies Allergy Verified 08/20/18 19:58 Physical Exam - Constitutional Appears: No Acute Distress - Head Exam Head Exam: ATRAUMATIC, NORMOCEPHALIC - Eye Exam Eye Exam: EOMI - ENT Exam ENT Exam: Mucous Membranes Moist - Respiratory Exam Respiratory Exam: Clear to Auscultation Bilateral, NORMAL BREATHING PATTERN. absent: Accessory Muscle Use, Respiratory Distress - Cardiovascular Exam Cardiovascular Exam: RRR, +S1, +S2 - GI/Abdominal Exam GI & Abdominal Exam: Normal Bowel Sounds, Soft - Neurological Exam Neurological exam: CN II-XII Intact, Oriented x3 - Psychiatric Exam Psychiatric exam: Normal Affect, Normal Mood - Skin Skin Exam: Dry, Normal Color, Warm Results - Vital Signs Recent Vital Signs: Last Vital Signs Temp 97.8 F 08/20/18 17:37 Pulse 96 H 08/20/18 17:40 Resp 18 08/20/18 17:37 BP 121/66 08/20/18 17:40 Pulse Ox 98 08/20/18 17:37 - Labs Result Diagrams: 08/20/18 18:27 08/20/18 18:27 Labs: Laboratory Results - last 24 hr 08/20/18 08/20/18 08/20/18 18:27 18:27 18:30 WBC 14.4 H D RBC 4.47 Hgb 11.3 L Hct 36.2 MCV 81.0 MCH 25.3 MCHC 31.2 RDW 15.2 H Plt Count 451 H MPV 10.0 Gran % 57.7 Lymph % (Auto) 32.2 [place] % (Auto) 7.2 H Eos % (Auto) 2.6 Baso % (Auto) 0.3 Gran # 8.29 H Lymph # (Auto) 4.6 H [place] # (Auto) 1.0 H Eos # (Auto) 0.4 Baso # (Auto) 0.04 Sodium 142 Potassium 4.6 Chloride 104 Carbon Dioxide 29 Anion Gap 14 BUN 15 Creatinine 0.8 Est GFR ( Amer) > 60 Est GFR (Non-Af Amer) > 60 Random Glucose 97 Calcium 9.6 Magnesium 2.5 H Total Bilirubin 0.4 AST 28 ALT 24 Alkaline Phosphatase 122 Lactate Dehydrogenase 391 Total Creatine Kinase 100 Troponin I < 0.01 Total Protein 8.2 Albumin 4.6 Globulin 3.6 Albumin/Globulin Ratio 1.3 Lipase 139 Urine Color Colorless Urine Appearance Clear Urine pH 6.5 Ur Specific [place] <= 1.005 Urine Protein Negative Urine Glucose (UA) Negative Urine Ketones Negative Urine Blood Negative Urine Nitrate Negative Urine Bilirubin Negative Urine Urobilinogen 0.2 Ur Leukocyte Esterase Small H Urine RBC Negative Urine WBC 1 - 3 Ur Epithelial Cells None Urine Bacteria None Assessment & Plan - Assessment and Plan (Free Text) Assessment: Pt is a 53yo female with a PMH of NIDDM, HTN, ?GERD, ?hiatial hernia, plantar fascitis, asthma, BERYL who presents to the ED complaining of 8/10 burning chest pain, which radiates to her back. Plan: Chest pain, likely atypical Chest pain secondary to GI, Pulm, or MSK origin, rule out ACS - trop negative x1, continue to trend Q6 - EKG shows no signs of ST elevation, depression or T wave inversion, repeat in morning - follow up lipid panel - Pepto bismol PRN - flexeril 5mg TID - pepcid 20mg - morphine 2mg q4 PRN - nitro SL 0.3 PRN - ECHO: February 2017, EF 69%, mild mitral regurg, mild tricuspid regurg, mild pulm HTN - Myocardial Stress Test: February 2017, essentially normal SPECT myocardial perfusion study. Normal gated wall motion of the left ventricle. - Cardio consulted, Dr Montgomery Suspected Asymtomatic Bacteruria - s/p one dose of rocephin in ED - continue to monitor off antibiotics - WBC 14.4 - positive for LE - follow up urine culture Anemia, asymptomatic Hgb at baseline, stable normocytic normochromic anemia - Hgb 11.3 - follow up iron panel - follow up B12 and folate - FOBT - cannot order peripheral smear, pt is observation status History of HTN - continue amlodipine 5mg - lasix 20mg - hydralazine 25 BID - lisinopril 40mg History of NIDDM - accuchecks - ISS - follow up A1C - hold metformin at this time, in case pt needs procedure with contrast Histry of Asthma - duonebs PRN Dispo: most likely will discharge home 18 Pt seen, examined, assessment and plan discussed with Dr Ish Lucas PGY1 - Date & Time Date: 08/20/18 Time: 22:17 <Junior Deng - Last Filed: 08/21/18 02:10> Results - Vital Signs Recent Vital Signs: Last Vital Signs Temp 98.8 F 08/21/18 00:01 Pulse 83 08/21/18 02:00 Resp 20 08/21/18 00:01 BP 119/70 08/21/18 00:01 Pulse Ox 95 08/21/18 00:01 - Labs Result Diagrams: 08/20/18 18:27 08/20/18 18:27 Labs: Laboratory Results - last 24 hr 08/20/18 08/20/18 08/20/18 18:27 18:27 18:30 WBC 14.4 H D RBC 4.47 Hgb 11.3 L Hct 36.2 MCV 81.0 MCH 25.3 MCHC 31.2 RDW 15.2 H Plt Count 451 H MPV 10.0 Gran % 57.7 Lymph % (Auto) 32.2 [place] % (Auto) 7.2 H Eos % (Auto) 2.6 Baso % (Auto) 0.3 Gran # 8.29 H Lymph # (Auto) 4.6 H [place] # (Auto) 1.0 H Eos # (Auto) 0.4 Baso # (Auto) 0.04 Sodium 142 Potassium 4.6 Chloride 104 Carbon Dioxide 29 Anion Gap 14 BUN 15 Creatinine 0.8 Est GFR ( Amer) > 60 Est GFR (Non-Af Amer) > 60 Random Glucose 97 Calcium 9.6 Magnesium 2.5 H Total Bilirubin 0.4 AST 28 ALT 24 Alkaline Phosphatase 122 Lactate Dehydrogenase 391 Total Creatine Kinase 100 Troponin I < 0.01 Total Protein 8.2 Albumin 4.6 Globulin 3.6 Albumin/Globulin Ratio 1.3 Lipase 139 Urine Color Colorless Urine Appearance Clear Urine pH 6.5 Ur Specific [place] <= 1.005 Urine Protein Negative Urine Glucose (UA) Negative Urine Ketones Negative Urine Blood Negative Urine Nitrate Negative Urine Bilirubin Negative Urine Urobilinogen 0.2 Ur Leukocyte Esterase Small H Urine RBC Negative Urine WBC 1 - 3 Ur Epithelial Cells None Urine Bacteria None 08/21/18 00:15 WBC RBC Hgb Hct MCV MCH MCHC RDW Plt Count MPV Gran % Lymph % (Auto) [place] % (Auto) Eos % (Auto) Baso % (Auto) Gran # Lymph # (Auto) [place] # (Auto) Eos # (Auto) Baso # (Auto) Sodium Potassium Chloride Carbon Dioxide Anion Gap BUN Creatinine Est GFR ( Amer) Est GFR (Non-Af Amer) Random Glucose Calcium Magnesium Total Bilirubin AST ALT Alkaline Phosphatase Lactate Dehydrogenase Total Creatine Kinase Troponin I < 0.01 Total Protein Albumin Globulin Albumin/Globulin Ratio Lipase Urine Color Urine Appearance Urine pH Ur Specific [place] Urine Protein Urine Glucose (UA) Urine Ketones Urine Blood Urine Nitrate Urine Bilirubin Urine Urobilinogen Ur Leukocyte Esterase Urine RBC Urine WBC Ur Epithelial Cells Urine Bacteria Attending/Attestation - Attestation I have personally seen and examined this patient.: Yes I have fully participated in the care of the patient.: Yes I have reviewed all pertinent clinical information: Yes
[2018-08-21] MEDS ORDERED: Pantoprazole 40 mg EC Tab PO SCH (06:00)
[2018-08-21 06:34] VITALS: O2SAT 97
[2018-08-21 07:22] LABS: BASO # 0.05 K/mm3 (0.0-2.0); BASO % 0.5 % (0.0-3.0); EOS # 0.4 (0.0-0.7); EOS % 3.5 % (1.5-5.0); GRAN # 5.21 (1.4-6.5); HEMOGLOBIN 10.5 g/dL (12.0-16.0); LYMPH # 3.9 (1.2-3.4); MEAN CELL VOLUME 80.7 fl (80.0-105.0); MONO # 0.9 (0.1-0.6); RBC 4.2 10^6/uL (3.5-6.1); RED CELL DISTRIBUTION WIDTH 15.2 % (11.5-14.5); WHITE BLOOD COUNT 10.4 10^3/ul (4.5-11.0)
[2018-08-21 07:28] LABS: IRON 36 ug/dL (45-180)
[2018-08-21 07:29] LABS: ALB/GLOB RATIO 1.2 (1.1-1.8); ALBUMIN 3.9 g/dL (3.0-4.8); ALT/SGPT 25 U/L (7-56); AST/SGOT 27 U/L (14-36); BLOOD UREA NITROGEN 12 mg/dL (7-21); GFR NON-AFRICAN AMERICAN > 60; HDL CHOLESTEROL 43 mg/dL (29-60)
[2018-08-21 07:37] LABS: % IRON SATURATION 13 % (20-55); TOTAL IRON BINDING CAPACITY 286 ug/dL (265-497)
[2018-08-21 07:39] LABS: TROPONIN I < 0.01 ng/mL
[2018-08-21 07:40] LABS: LDL CHOLESTEROL 88 mg/dL (0-129)
--- NOTE | 2018-08-21 08:43 | CP.PCM.DIS ---
<Priscilla Beckham - Last Filed: 08/21/18 14:59> Provider - Provider Date of Admission: 08/20/18 20:10 Attending physician: Cristopher Dasilva MD Primary care physician: Dr. Campuazno Consults: cardiology Time Spent in preparation of Discharge (in minutes): 45 Diagnosis - Discharge Diagnosis (1) Chest pain Status: Resolved Priority: High (2) GERD (gastroesophageal reflux disease) Status: Chronic Priority: Medium Hospital Course - Lab Results Lab Results: Most Recent Lab Values WBC 10.4 10^3/ul (4.5-11.0) D 08/21/18 06:30 RBC 4.20 10^6/uL (3.5-6.1) 08/21/18 06:30 Hgb 10.5 g/dL (12.0-16.0) L 08/21/18 06:30 Hct 33.9 % (36.0-48.0) L 08/21/18 06:30 MCV 80.7 fl (80.0-105.0) 08/21/18 06:30 MCH 25.0 pg (25.0-35.0) 08/21/18 06:30 MCHC 31.0 g/dl (31.0-37.0) 08/21/18 06:30 RDW 15.2 % (11.5-14.5) H 08/21/18 06:30 Plt Count 404 10^3/uL (120.0-450.0) 08/21/18 06:30 MPV 10.0 fl (7.0-11.0) 08/21/18 06:30 Gran % 50.0 % (50.0-68.0) 08/21/18 06:30 Lymph % (Auto) 37.0 % (22.0-35.0) H 08/21/18 06:30 [place] % (Auto) 9.0 % (1.0-6.0) H 08/21/18 06:30 Eos % (Auto) 3.5 % (1.5-5.0) 08/21/18 06:30 Baso % (Auto) 0.5 % (0.0-3.0) 08/21/18 06:30 Gran # 5.21 (1.4-6.5) 08/21/18 06:30 Lymph # (Auto) 3.9 (1.2-3.4) H 08/21/18 06:30 [place] # (Auto) 0.9 (0.1-0.6) H 08/21/18 06:30 Eos # (Auto) 0.4 (0.0-0.7) 08/21/18 06:30 Baso # (Auto) 0.05 K/mm3 (0.0-2.0) 08/21/18 06:30 Sodium 140 mmol/L (132-148) 08/21/18 06:30 Potassium 4.1 mmol/L (3.6-5.0) 08/21/18 06:30 Chloride 106 mmol/L (98-107) 08/21/18 06:30 Carbon Dioxide 29 mmol/L (21-33) 08/21/18 06:30 Anion Gap 10 (10-20) 08/21/18 06:30 BUN 12 mg/dL (7-21) 08/21/18 06:30 Creatinine 0.7 mg/dl (0.7-1.2) 08/21/18 06:30 Est GFR ( Amer) > 60 08/21/18 06:30 Est GFR (Non-Af Amer) > 60 08/21/18 06:30 Random Glucose 101 mg/dL (70-110) 08/21/18 06:30 Calcium 9.0 mg/dL (8.4-10.5) 08/21/18 06:30 Phosphorus 3.9 mg/dL (2.5-4.5) 08/21/18 06:30 Magnesium 2.4 mg/dL (1.7-2.2) H 08/21/18 06:30 Iron 36 ug/dL (45-180) L 08/21/18 06:30 TIBC 286 ug/dL (265-497) 08/21/18 06:30 % Saturation 13 % (20-55) L 08/21/18 06:30 Total Bilirubin 0.6 mg/dL (0.2-1.3) 08/21/18 06:30 AST 27 U/L (14-36) 08/21/18 06:30 ALT 25 U/L (7-56) 08/21/18 06:30 Alkaline Phosphatase 108 U/L (38-126) 08/21/18 06:30 Lactate Dehydrogenase 391 U/L (333-699) 08/20/18 18: Total Creatine Kinase 100 U/L (35-230) 08/20/18 Troponin I < 0.01 ng/mL 08/21/18:30 Total Protein 7.1 g/dL (5.8-8.3) 08/21/18: Albumin 3.9 g/dL (3.0-4.8) 08/21/18: Globulin 3.2 gm/dL 08/21/18 Albumin/Globulin Ratio 1.2 (1.1-1.8) 08/21/18: Triglycerides 57 mg/dL (35-160) 08/21/18 Cholesterol 160 mg/dL (130-200) 08/21/18: LDL Cholesterol Direct 88 mg/dL (0-129) 08/21/18: HDL Cholesterol 43 mg/dL (29-60) 08/21/18: Lipase 139 U/L (23-300) 08/20/18 18 Urine Color Colorless (YELLOW) 08/20/18 18: Urine Appearance Clear (CLEAR) 08/20/18: Urine pH 6.5 (4.7-8.0) 08/20/18: Ur Specific [place] <= 1.005 (1.005-1.035) 08/20/18: Urine Protein Negative mg/dL (<30 mg/dL) 08/20/18: Urine Glucose (UA) Negative mg/dL (NEGATIVE) 08/20/18 18: Urine Ketones Negative mg/dL (NEGATIVE) 08/20/18 18: Urine Blood Negative (NEGATIVE) 08/20/18 18: Urine Nitrate Negative (NEGATIVE) 08/20/18: Urine Bilirubin Negative (NEGATIVE) 08/20/18 Urine Urobilinogen 0.2 E.U./dL (<1 E.U./dL) 08/20/18 18: Ur Leukocyte Esterase Small Matthias/uL (NEGATIVE) H 08/20/18 18: Urine RBC Negative /hpf (0-2) 08/20/18 18: Urine WBC 1 - 3 /hpf (0-6) 08/20/18 18:30 Ur Epithelial Cells None /hpf (0-5) 08/20/18 18:30 Urine Bacteria None (NEG) 08/20/18 18:30 - Hospital Course Hospital Course: Patient is a 53 yo female with a PMH of NIDDM, HTN, ?GERD, ?hiatial hernia, plantar fascitis, asthma, BERYL who presents to the ED complaining of 8/10 burning substernal chest pain, which radiates to her back. The pain started at 7pm last night, she states the pain worsened from while she was at work walking up and down stairs. Patient reports having difficulty breathing during this event, in addition to feeling tired. Patient states that her pain is now 2/10. She states this has happened before about 6 months ago, [place] [facility] [place], she was told she had GERD. She took an Ibuprofen which helped the pain. She denies having the pain radiate to her jaw, arms or neck. Pt denies paroxysmal nocturnal dyspnea, waking up with a cough/ scratchy throat.Patient was diagnosed with non- cardiac chest pain most likely due to GERD. However, an acute chest pain work up was completed. EKG showed normal sinus rhythm, troponins were negative x3 (<0.01) and chest x-ray was unremarkable. Her lipid panel results were within normal limits (Trig 57, Chol 160, LDL 88, HDL 43). Previous echo completed in February 2017 was normal. Troponins were negative. EKG did not show any acute changes. Cardiology was consulted and advised to start Protonix. Patient was also diagnosed anemia. Hemoglobin was 11.3 (L), iron was 36 (L), TIBC was 286 (normal), ferritin was 28.7 (normal), Vitamin B12 was 207 (L) and folate was 9.7 (normal). She will follow this up as an outpatient. On discharge, chest pain had resolved. Patient was breathing room air and ambulating without assistance. She will get a stress test next week as an outpatient. Discharge Exam - Head Exam Head Exam: ATRAUMATIC, NORMOCEPHALIC - Eye Exam Eye Exam: EOMI, Normal appearance Pupil Exam: PERRL - ENT Exam ENT Exam: Mucous Membranes Moist, Normal Exam - Neck Exam Neck exam: Full Rom, Normal Inspection - Respiratory Exam Respiratory Exam: Clear to PA & Lateral, NORMAL BREATHING PATTERN, UNREMARKABLE - Cardiovascular Exam Cardiovascular Exam: REGULAR RHYTHM, +S1, +S2 - GI/Abdominal Exam GI & Abdominal Exam: Normal Bowel Sounds, Soft, Unremarkable - Rectal Exam Rectal Exam: Deferred - Extremities Exam Extremities exam: normal capillary refill, normal inspection, pedal pulses present - Back Exam Back exam: NORMAL INSPECTION - Neurological Exam Neurological exam: Alert, CN II-XII Intact, Normal Gait, Oriented x3 - Psychiatric Exam Psychiatric exam: Normal Affect, Normal Mood - Skin Skin Exam: Dry, Intact, Normal Color, Warm Discharge Plan - Discharge Medications Prescriptions: Pantoprazole [Protonix EC Tab] 40 mg PO DAILY #30 ect - Follow Up Plan Condition: IMPROVED Disposition: HOME/ ROUTINE Patient education suggested?: Yes Instructions: Acid Reflux (Gastroesophageal Reflux Disease), Adult (DC), Urinary Tract Infection, Adult (DC), Chest Pain (DC) Additional Instructions: Please follow up with your primary care doctor, Dr. Campuzano, within 3-5 days of discharge. He can provide you with referrals to specialists. Please follow-up with a mill tender as an outpatient. Please follow-up with a accounting lecturer as an outpatient. You are scheduled for a stress test as an outpatient on 09/02. Please take all medications as prescribed. You are being given a prescription for Protonix (pantoprazole) for acid reflux. If your symptoms return, please present to the nearest emergency room. Nursing See care notes provided for further instructions. Referrals: Dev Montgomery MD [Staff Provider] - <Cristopher Dasilva - Last Filed: 08/23/18 07:56> Provider - Provider Date of Admission: 08/20/18 20:10 Attending physician: Cristopher Dasilva MD Hospital Course - Lab Results Lab Results: Micro Results 08/20/18 23:10 Urine,Clean Catch Urine Culture - Final 10-50,000 CFU/ML. MULTIPLE SPECIES. PROBABLE CONTAMINATION. Most Recent Lab Values WBC 10.4 10^3/ul (4.5-11.0) D 08/21/18 06:30 RBC 4.20 10^6/uL (3.5-6.1) 08/21/18 06:30 Hgb 10.5 g/dL (12.0-16.0) L 08/21/18 06:30 Hct 33.9 % (36.0-48.0) L 08/21/18 06:30 MCV 80.7 fl (80.0-105.0) 08/21/18 06:30 MCH 25.0 pg (25.0-35.0) 08/21/18 06:30 MCHC 31.0 g/dl (31.0-37.0) 08/21/18 06:30 RDW 15.2 % (11.5-14.5) H 08/21/18 06:30 Plt Count 404 10^3/uL (120.0-450.0) 08/21/18 06:30 MPV 10.0 fl (7.0-11.0) 08/21/18 06:30 Gran % 50.0 % (50.0-68.0) 08/21/18 06:30 Lymph % (Auto) 37.0 % (22.0-35.0) H 08/21/18 06:30 [place] % (Auto) 9.0 % (1.0-6.0) H 08/21/18 06:30 Eos % (Auto) 3.5 % (1.5-5.0) 08/21/18 06:30 Baso % (Auto) 0.5 % (0.0-3.0) 08/21/18 06:30 Gran # 5.21 (1.4-6.5) 08/21/18 06:30 Lymph # (Auto) 3.9 (1.2-3.4) H 08/21/18 06:30 [place] # (Auto) 0.9 (0.1-0.6) H 08/21/18 06:30 Eos # (Auto) 0.4 (0.0-0.7) 08/21/18 06:30 Baso # (Auto) 0.05 K/mm3 (0.0-2.0) 08/21/18 06:30 Sodium 140 mmol/L (132-148) 08/21/18 06:30 Potassium 4.1 mmol/L (3.6-5.0) 08/21/18 06:30 Chloride 106 mmol/L (98-107) 08/21/18 06:30 Carbon Dioxide 29 mmol/L (21-33) 08/21/18 06:30 Anion Gap 10 (10-20) 08/21/18 06:30 BUN 12 mg/dL (7-21) 08/21/18 06:30 Creatinine 0.7 mg/dl (0.7-1.2) 08/21/18 06:30 Est GFR ( Amer) > 60 08/21/18 06:30 Est GFR (Non-Af Amer) > 60 08/21/18 06:30 POC Glucose (mg/dL) 87 mg/dL (65-110) 08/21/18 16:24 Random Glucose 101 mg/dL (70-110) 08/21/18 06:30 Hemoglobin A1c 6.1 % (4.2-6.5) 08/21/18 06:30 Calcium 9.0 mg/dL (8.4-10.5) 08/21/18 06:30 Phosphorus 3.9 mg/dL (2.5-4.5) 08/21/18 06:30 Magnesium 2.4 mg/dL (1.7-2.2) H 08/21/18 06:30 Iron 36 ug/dL (45-180) L 08/21/18 06:30 TIBC 286 ug/dL (265-497) 08/21/18 06:30 % Saturation 13 % (20-55) L 08/21/18 06:30 Ferritin 28.7 ng/mL 08/21/18 06:30 Total Bilirubin 0.6 mg/dL (0.2-1.3) 08/21/18 06:30 AST 27 U/L (14-36) 08/21/18 06:30 ALT 25 U/L (7-56) 08/21/18 06:30 Alkaline Phosphatase 108 U/L (38-126) 08/21/18 06:30 Lactate Dehydrogenase 391 U/L (333-699) 08/20/18 18:27 Total Creatine Kinase 100 U/L (35-230) 08/20/18 18:27 Troponin I < 0.01 ng/mL 08/21/18 06:30 Total Protein 7.1 g/dL (5.8-8.3) 08/21/18 06:30 Albumin 3.9 g/dL (3.0-4.8) 08/21/18 06:30 Globulin 3.2 gm/dL 08/21/18 06:30 Albumin/Globulin Ratio 1.2 (1.1-1.8) 08/21/18 06:30 Triglycerides 57 mg/dL (35-160) 08/21/18:30 Cholesterol 160 mg/dL (130-200) 08/21/18:30 LDL Cholesterol Direct 88 mg/dL (0-129) 08/21/18:30 HDL Cholesterol 43 mg/dL (29-60) 08/21/18:30 Lipase 139 U/L (23-300) 08/20/18 18: Vitamin B12 207 pg/mL (239-931) L 08/21/18:30 Folate 9.7 ng/mL 08/21/18:30 Urine Color Colorless (YELLOW) 08/20/18 Urine Appearance Clear (CLEAR) 08/20/18: Urine pH 6.5 (4.7-8.0) 08/20/18 18: Ur Specific [place] <= 1.005 (1.005-1.035) 08/20/18: Urine Protein Negative mg/dL (<30 mg/dL) 08/20/18: Urine Glucose (UA) Negative mg/dL (NEGATIVE) 08/20/18: Urine Ketones Negative mg/dL (NEGATIVE) 08/20/18: Urine Blood Negative (NEGATIVE) 08/20/18: Urine Nitrate Negative (NEGATIVE) 08/20/18:30 Urine Bilirubin Negative (NEGATIVE) 08/20/18: Urine Urobilinogen 0.2 E.U./dL (<1 E.U./dL) 08/20/18: Ur Leukocyte Esterase Small Matthias/uL (NEGATIVE) H 08/20/18:30 Urine RBC Negative /hpf (0-2) 08/20/18 18:30 Urine WBC 1 - 3 /hpf (0-6) 08/20/18:30 Ur Epithelial Cells None /hpf (0-5) 08/20/18 18:30 Urine Bacteria None (NEG) 08/20/18 18:30 Attending/Attestation - Attestation I have personally seen and examined this patient.: Yes I have fully participated in the care of the patient.: Yes I have reviewed all pertinent clinical information, including history, physical exam and plan: Yes Notes (Text): 08/23/18 07:53 Attending note; Patient seen and examined with resident. Patient is a 53 year old female with a PMH of NIDDM, HTN, GERD, hiatial hernia, plantar fascitis, asthma, BERYL who presents to the ED complaining of 8/10 burning substernal chest pain. Patient was admitted for chest pain rule out ACS. Cardiac enzymes negative. Cardiology evaluation appreciated. Patient had stress test in 03/05 was normal. Possible GI related chest discomfort. Started on Protonix. Outpatient stress test arranged by cardiology. Obesity; diet, exercise and weight reduction advised. Upon discharge patient will follow-up with PMD . Patient needs outpatient GI workup for possible endoscopy. The diagnosis, follow-up plan discussed with patient in detail. 08/23/18 07:55
--- NOTE | 2018-08-21 08:51 | RAD ---
Date of service: 08/20/2018 HISTORY: medical clearance COMPARISON: 02/23/2018. FINDINGS: LUNGS: No active pulmonary disease. PLEURA: No significant pleural effusion identified, no pneumothorax apparent. CARDIOVASCULAR: No radiographic findings to suggest acute or significant cardiovascular disease. OSSEOUS STRUCTURES: No significant abnormalities. VISUALIZED UPPER ABDOMEN: Normal. OTHER FINDINGS: None. IMPRESSION: No active disease. No significant interval change compared to the prior examination(s). Concordant results with the preliminary interpretation rendered by the emergency department physician procedure.
--- NOTE | 2018-08-21 09:02 | CON ---
DATE: 08/21/2018 CARDIOLOGY CONSULTATION HISTORY: The patient is a 53-year-old woman who presents with epigastric discomfort. The patient's cardiac risk factors include diabetes mellitus, obesity, hypertension and hypercholesterolemia. She had similar symptoms a year or two ago, in which she underwent a stress test which was normal. She was scheduled to undergo GI workup. SOCIAL HISTORY: The patient does not smoke. REVIEW OF SYSTEMS: The 14-point review of systems is reviewed in detail. No additional cardiac symptoms symptomatology is noted. PHYSICAL EXAMINATION: VITAL SIGNS: Blood pressure varies from 119 to 102 systolic, heart rate is in the 80s. NECK: Negative JVD. LUNGS: Without rales. HEART: Reveal S1, S2. EXTREMITIES: Without edema. DATA: EKG shows no acute changes. Laboratories, troponins are negative x2. Hemoglobin is 11.3. IMPRESSION: 1. Chest pain. 2. Diabetes mellitus. 3. Hypertension. 4. Hypercholesterolemia. 5. Diabetes mellitus. 6. No evidence for acute coronary syndrome. Given these findings, we will give the patient a trial of Protonix. Once her workup is done, we will consider an outpatient stress test. Dev Montgomery MD
--- NOTE | 2018-08-21 09:06 | CARD ---
APPROVED REPORT Date of service: 08/21/2018 EKG Measurement Heart [id number] <Conclusion> Normal sinus rhythm Nonspecific ST abnormality prolonged QT Abnormal ECG
[2018-08-21] MEDS: Insulin Reg-LOW-Coverage SC SCH ×3 (10:54→17:38)
[2018-08-21 12:34] VITALS: PULSE 94; RESP 18
[2018-08-21 13:19] LABS: FERRITIN 28.7 ng/mL
[2018-08-21 13:49] LABS: FOLATE 9.7 ng/mL
[2018-08-21 17:44] VITALS: BP 111/62; TEMP 98.5
== END 2018-08-21 18:50 | disposition home or self-care (01) ==
LOC: ED 16:41 → ERH 20:10 → 2RSO 22:15
PROVIDERS: ADMIT Internal Medicine; ATTEND Internal Medicine
DX: K21.9 Gastro-esophageal reflux disease without esophagitis (principal); R07.89 Other chest pain; E11.9 Type 2 diabetes mellitus without complications; I10 Essential (primary) hypertension; E78.00 Pure hypercholesterolemia, unspecified; N39.0 Urinary tract infection, site not specified; G47.33 Obstructive sleep apnea (adult) (pediatric); D64.9 Anemia, unspecified; J45.909 Unspecified asthma, uncomplicated
CPT/HCPCS: 36415; 71045; 80053; 80061; 81001; 82550; 82607; 82728; 82746; 82948; 83036; 83540; 83550; 83615; 83690; 83735; 84100; 84484; 85025; 87086; 93005; 96361; 96365; 96375; 99285; G0378; J0696; J2270; J7030